=== PATIENT | male | born 1985 | race Caucasian/White ===

== ENCOUNTER 2023-05-28 01:58 | Emergency (ER) | payer SELFPAY ==
[~2023-05-28] VITALS: Ht 172.7 cm; Wt 75.0 kg
[2023-05-28 02:03] VITALS: TEMP 96.4; O2SAT 100
[2023-05-28] MEDS ORDERED: BACITRACIN ZINC OINT UDPKT TOP ONE (03:15)
[2023-05-28] MEDS ORDERED: LIDOCAINE HCL/EPINEPHRINE 1%-EPI 1:100,000 20 ML VIAL INFIL ONE (03:15)
[2023-05-28] MEDS: TETANUS, DIPHTHERIA, PERTUSSIS VAC/PF 0.5ML (>10YR OLD) IM ONE (03:51)
[2023-05-28] MEDS: HYDROCODONE/ACETAMINOPHEN 5/325MG TABLET PO ONE (03:52)
[2023-05-28 05:53] VITALS: BP 122/78; PULSE 85; RESP 16
== END 2023-05-28 06:30 | disposition home or self-care (01) ==
LOC: ER 02:25
DX: S01.01XA Laceration without foreign body of scalp, initial encounter (principal); S83.91XA Sprain of unspecified site of right knee, initial encounter; S80.211A Abrasion, right knee, initial encounter; S50.812A Abrasion of left forearm, initial encounter; Y08.89XA Assault by other specified means, initial encounter; Y93.89 Activity, other specified; Y92.89 Other specified places as the place of occurrence of the external cause; Y99.9 Unspecified external cause status
CPT/HCPCS: 73502; 73090; 73562; 70450; 90715; 12002; 90471; 99285; J3490; Z7610